=== PATIENT | male | born 1960 | race Caucasian/White ===

== ENCOUNTER 2016-06-22 11:30 | Emergency (ER) | payer SELFPAY ==
[~2016-06-22] VITALS: Ht 180.3 cm; Wt 85.0 kg
[2016-06-22 11:31] VITALS: BP 164/87; PULSE 75; RESP 18; TEMP 97.8; O2SAT 98
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
[2016-06-22 14:04] VITALS: BP 111/70; PULSE 66; RESP 16; TEMP 98.2; O2SAT 97
[2016-06-22] MEDS ORDERED: ACETAMINOPHEN 325 MG TAB PO ONE (14:15)
--- NOTE | 2016-06-22 14:19 | RADRPT ---
EXAM DATE/TIME: 06/22/2016 14:02 [facility] COMPARISON: No previous studies available for comparison. INDICATIONS : Chest pain. MEDICAL HISTORY : Cardiovascular disease. SURGICAL HISTORY : Liver surgery. ENCOUNTER: Initial ACUITY: 2 days PAIN SCORE: 9/10 LOCATION: middle chest FINDINGS: PA and lateral views of the chest. Surgical clips in the right upper quadrant of the abdomen. Bluntin g of the right costophrenic sulcus indicating small pleural effusion versus scarring. The lungs are c lear. Cardiomediastinal silhouette within normal limits. No evidence of pneumothorax. CONCLUSION: 1. Small right pleural effusion versus scarring. No other acute cardiopulmonary disease identified. 2. Post surgical findings right upper quadrant abdomen. Todd Morgan MD on June 22, 2016 at 14:15 Board Certified Radiologist. This report was verified electronically.
[2016-06-22 14:21] LABS: BASOPHIL # 0.1 TH/MM3 (0-0.2); BASOPHIL % 1.4 % (0.0-2.0); EOSINOPHIL # 0.2 TH/MM3 (0-0.4); EOSINOPHIL % 2.3 % (0.0-4.0); HEMATOCRIT 45.8 % (39.0-51.0); HEMO FLAGS DIFF FINAL; LYMPH % 42.9 % (9.0-44.0); LYMPHOCYTE # 3.8 TH/MM3 (1.0-4.8); MEAN CELL VOLUME 86.5 FL (80.0-100.0); MEAN CORPUSCULAR HEMOGLOBIN 29.3 PG (27.0-34.0); MEAN CORPUSCULAR HGB CONC 33.8 % (32.0-36.0); MONO % 8.1 % (0.0-8.0); NEUT % 45.3 % (16.0-70.0); PLATELET COUNT 198 TH/MM3 (150-450); RED CELL DISTRIBUTION WIDTH 15.1 % (11.6-17.2); WHITE BLOOD COUNT 8.9 TH/MM3 (4.0-11.0)
[2016-06-22 14:39] LABS: ALT (GPT) 120 U/L (12-78); ANION GAP 3 MEQ/L (5-15); AST (GOT) 97 U/L (15-37); BICARBONATE 33.4 MEQ/L (21.0-32.0); BLOOD UREA NITROGEN 6 MG/DL (7-18); CHLORIDE 101 MEQ/L (98-107); GLOMERULAR FILTRATION RATE 114 ML/MIN (>89); POTASSIUM 4.4 MEQ/L (3.5-5.1); SODIUM (NA) 137 MEQ/L (136-145)
[2016-06-22 14:42] LABS: ALKALINE PHOSPHATASE 95 U/L (45-117); TOTAL BILIRUBIN ADULT 0.4 MG/DL (0.2-1.0)
== END 2016-06-22 15:38 | disposition home or self-care (01) ==
LOC: NEPD 11:30
DX: S39.012A Strain of muscle, fascia and tendon of lower back, initial encounter (principal); R07.89 Other chest pain; F17.210 Nicotine dependence, cigarettes, uncomplicated; X50.0XXA Overexertion from strenuous movement or load, initial encounter; Y93.89 Activity, other specified; Y92.511 Restaurant or cafe as the place of occurrence of the external cause
CPT/HCPCS: 71020; 80053; 85025; 99283

== ENCOUNTER 2016-07-07 21:47 | Emergency (ER) | payer SELFPAY ==
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
== END 2016-07-07 23:14 | disposition home or self-care (01) ==
LOC: NEPC 21:47
DX: F14.10 Cocaine abuse, uncomplicated (principal); F11.10 Opioid abuse, uncomplicated; F17.210 Nicotine dependence, cigarettes, uncomplicated
CPT/HCPCS: 99284

== ENCOUNTER 2017-03-27 04:15 | Emergency (ER) | payer SELFPAY ==
[~2017-03-27] VITALS: Ht 167.6 cm; Wt 80.0 kg
[~2017-03-27 04:15] MED LIST: GABA300C5 PO; LURA40 PO; SOFO1TAB; TRAZ100T10 PO
[2017-03-27 04:22] VITALS: BP 138/81; PULSE 119; RESP 16; TEMP 98.9; O2SAT 98
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
[2017-03-27] MEDS ORDERED: SODIUM CHLOR 0.9% 1000 ML INJ 1,000 ML IV ONE (04:45)
[2017-03-27] MEDS ORDERED: ONDANSETRON HCL 4 MG/2 ML VIAL IV ONE (04:45)
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
--- NOTE | 2017-03-27 05:17 | RADRPT ---
EXAM DATE/TIME: 03/27/2017 04:57 [facility] COMPARISON: CT BRAIN W/O CONTRAST, January 15, 2017, 21:06. INDICATIONS : Weakness. RADIATION DOSE: 56.35 CTDIvol (mGy) MEDICAL HISTORY : Cardiovascular disease. Hepatitis C. Renal calculi. SURGICAL HISTORY : None. ENCOUNTER: Initial ACUITY: 1 day PAIN SCALE: 0/10 LOCATION: cranial TECHNIQUE: Multiple contiguous axial images were obtained of the head. Using automated exposure control and adj ustment of the mA and/or kV according to patient size, radiation dose was kept as low as reasonably a chievable to obtain optimal diagnostic quality images. DICOM format image data is available electro nically for review and comparison. FINDINGS: CEREBRUM: The ventricles are normal for age. No evidence of midline shift, mass lesion, hemorrhage or acute in farction. No extra-axial fluid collections are seen. POSTERIOR FOSSA: The cerebellum and brainstem are intact. The 4th ventricle is midline. The cerebellopontine angle i s unremarkable. EXTRACRANIAL: There is mucoperiosteal thickening of the visualized paranasal sinuses, especially right maxillary. T his is worsened before. SKULL: The calvaria is intact. No evidence of skull fracture. CONCLUSION: No acute intracranial abnormality. Sinus disease. Trent Rushing MD on March 27, 2017 at 5:14 Board Certified Radiologist. This report was verified electronically.
[2017-03-27 05:20] VITALS: RESP 16; O2SAT 99
[2017-03-27 05:20] LABS: AUTOMATED NEUTROPHIL # 12.1 TH/MM3 (1.8-7.7); BASOPHIL # 0.1 TH/MM3 (0-0.2); BASOPHIL % 0.5 % (0.0-2.0); EOSINOPHIL % 0.3 % (0.0-4.0); HEMATOCRIT 40.2 % (39.0-51.0); HEMOGLOBIN 13.6 GM/DL (13.0-17.0); LYMPHOCYTE # 1.5 TH/MM3 (1.0-4.8); MEAN CELL VOLUME 86.5 FL (80.0-100.0); MEAN CORPUSCULAR HEMOGLOBIN 29.3 PG (27.0-34.0); MEAN CORPUSCULAR HGB CONC 33.9 % (32.0-36.0); MONO % 9.3 % (0.0-8.0); MONOCYTE # 1.4 TH/MM3 (0-0.9); NEUT % 79.9 % (16.0-70.0); PLATELET COUNT 233 TH/MM3 (150-450); RED BLOOD COUNT 4.65 MIL/MM3 (4.50-5.90); RED CELL DISTRIBUTION WIDTH 15.3 % (11.6-17.2); WHITE BLOOD COUNT 15.1 TH/MM3 (4.0-11.0)
[2017-03-27 05:25] LABS: INTERNATIONAL NORMALIZED RATIO 1.1 RATIO; PROTHROMBIN TIME - PATIENT 10.9 SEC (9.8-11.6)
[2017-03-27 05:57] LABS: ALBUMIN 4.2 GM/DL (3.4-5.0); ALKALINE PHOSPHATASE 107 U/L (45-117); ALT (GPT) 28 U/L (12-78); AST (GOT) 28 U/L (15-37); BICARBONATE 28.1 MEQ/L (21.0-32.0); BLOOD UREA NITROGEN 12 MG/DL (7-18); CALCIUM 8.9 MG/DL (8.5-10.1); CHLORIDE 101 MEQ/L (98-107); CREATININE 1.04 MG/DL (0.60-1.30); GLOMERULAR FILTRATION RATE 73 ML/MIN (>89); GLUCOSE,RANDOM 105 MG/DL (74-106); LIPASE 120 U/L (73-393); SODIUM (NA) 140 MEQ/L (136-145); TOTAL BILIRUBIN ADULT 0.3 MG/DL (0.2-1.0); TROPONIN I LESS THAN 0.02 NG/ML (0.02-0.05)
[2017-03-27 05:58] LABS: ACETAMINOPHEN LESS THAN 2.0 MCG/ML (10.0-30.0)
[2017-03-27 06:36] VITALS: BP 150/76; PULSE 102; RESP 16; O2SAT 96
[2017-03-27] MEDS ORDERED: KETOROLAC TROMETHAMINE 30 MG/ML (IVP) VIAL IV PUSH ONE (06:45)
--- NOTE | 2017-03-27 07:03 | RADRPT ---
EXAM DATE/TIME: 03/27/2017 06:49 [facility] COMPARISON: No previous studies available for comparison. INDICATIONS : Shoulder pain. MEDICAL HISTORY : Cardiovascular disease. Hepatitis C. Renal calculi. SURGICAL HISTORY : None. ENCOUNTER: Initial ACUITY: 3 days PAIN SCORE: 9/10 LOCATION: Left upper extremity shoulder. FINDINGS: Multiple view examination of the left shoulder demonstrates no evidence of fracture or dislocation. The glenohumeral and acromioclavicular joints are maintained. There is normal range of motion betwee n internal and external rotation. Bony mineralization is normal. CONCLUSION: No acute disease. Trent Brewster MD on March 27, 2017 at 6:59 Board Certified Radiologist. This report was verified electronically.
--- NOTE | 2017-03-27 07:14 | RADRPT ---
EXAM DATE/TIME: 03/27/2017 06:56 [facility] COMPARISON: No previous studies available for comparison. INDICATIONS : Osteomylitis RADIATION DOSE: 18.19 CTDIvol (mGy) MEDICAL HISTORY : Heroin SURGICAL HISTORY : ENCOUNTER: Initial ACUITY: 1 day PAIN SCALE: 4/10 LOCATION: Left shoulder TECHNIQUE: Volumetric scanning of the shoulder was performed. Using automated exposure control and adjustment o f the mA and/or kV according to patient size, radiation dose was kept as low as reasonably achievable to obtain optimal diagnostic quality images. DICOM format image data is available electronically f or review and comparison. FINDINGS: BONES: No evidence of fracture. Alignment is within normal limits. JOINTS: There is minimal hypertrophic change at the distal clavicle at the acromioclavicular joint. There is a small area of punctate calcification at the posterior aspect of the superior labrum likely related to chondrocalcinosis. SOFT TISSUES: Muscles, tendons, and neurovascular structures are grossly unremarkable. The integrity of the rotato r cuff tendons cannot be reliably evaluated on CT without intra-articular contrast. No evidence of m ass, organized fluid collection, or foreign body. CONCLUSION: 1. No fracture or acute bony injury is seen. 2. Small punctate areas of calcification at the posterior aspect of the superior labrum which may be related to chondrocalcinosis. Trent Brewster MD on March 27, 2017 at 7:06 Board Certified Radiologist. This report was verified electronically.
[2017-03-27 08:00] VITALS: BP 126/72; PULSE 100; RESP 16; O2SAT 96
[2017-03-27 08:43] LABS: BACTERIA, URINE OCC /hpf; BILIRUBIN, URINE NEG (NEG); BLOOD, URINE NEG (NEG); GLUCOSE,URINE NEG (NEG); HYALINE CAST, URINE 63 /lpf (RARE); KETONE, URINE NEG (NEG); MUCUS URINE FEW /lpf (OCC); NITRITE,URINE NEG (NEG); SQUAMOUS EPITHELIAL CELL URINE 1 /hpf (0-5); URINE COLOR YELLOW (YELLW/STRAW); URINE LEUKOCYTE ESTERASE TRACE (NEG)
--- NOTE | 2017-03-27 09:04 | PD ---
Physical Exam Date Seen by Provider: Mar 27, 2017 Time Seen by Provider: 09:01 Narrative 56-year-old male came to the emergency room with history of shoulder pain. Patient is an IV drug abuser. He had also shot heroin before coming in. Patient was seen by the previous ER physician. Please refer to her history and physical for further details. Sign out was to follow-up on his labs and CT scan of the shoulder. All the test results of back and except for slight leukocytosis rest of the results are within normal limit. I'm comfortable discharging him home at this point. Data Data Last Documented VS Orders Orders Electrocardiogram (03/27/17 04:32) Complete Blood Count With Diff (03/27/17 04:32) Comprehensive Metabolic Panel (03/27/17 04:32) Creatine Kinase (Cpk) (03/27/17 04:32) Ckmb (Isoenzyme) Profile (03/27/17 04:32) Troponin I (03/27/17 04:32) B-Type Natriuretic Peptide (03/27/17 04:32) Prothrombin Time / Inr (Pt) (03/27/17 04:32) Act Partial Throm Time (Ptt) (03/27/17 04:32) Lipase (03/27/17 04:32) Urinalysis - C+S If Indicated (03/27/17 04:32) Magnesium (Mg) (03/27/17 04:32) Chest, Single Ap (03/27/17 04:32) Ct Brain W/O Iv Contrast(Rout) (03/27/17 04:32) Iv Access Insert/Monitor (03/27/17 04:32) Ecg Monitoring (03/27/17 04:32) Oximetry (03/27/17 04:32) Type And Screen (03/27/17 04:32) Drug Screen, Random Urine (03/27/17 04:32) Alcohol (Ethanol) (03/27/17 04:32) Salicylates (Aspirin) (03/27/17 04:32) Tylenol (Acetaminophen) (03/27/17 04:32) Sodium Chlor 0.9% 1000 Ml Inj (Ns 1000 M (03/27/17 04:45) Ondansetron Inj (Zofran Inj) (03/27/17 04:45) CKMB (03/27/17 04:45) CKMB% (03/27/17 04:45) Ct Shoulder W/O Contrast (03/27/17 ) Shoulder, Complete (>2vws) (03/27/17 06:37) Ice/Cold Pack (03/27/17 06:37) Westergren Sedimentation Rate (03/27/17 06:38) Ketorolac Inj (Toradol Inj) (03/27/17 06:45) Ed Discharge Order (03/27/17 09:04) AGID (03/27/17 04:45) Labs Laboratory Tests Test 03/27/17 04:45 03/27/17 08:20 03/27/17 08:25 White Blood Count 15.1 TH/MM3 Red Blood Count 4.65 MIL/MM3 Hemoglobin 13.6 GM/DL Hematocrit 40.2 % Mean Corpuscular Volume 86.5 FL Mean Corpuscular Hemoglobin 29.3 PG Mean Corpuscular Hemoglobin Concent 33.9 % Red Cell Distribution Width 15.3 % Platelet Count 233 TH/MM3 Mean Platelet Volume 8.0 FL Neutrophils (%) (Auto) 79.9 % Lymphocytes (%) (Auto) 10.0 % Monocytes (%) (Auto) 9.3 % Eosinophils (%) (Auto) 0.3 % Basophils (%) (Auto) 0.5 % Neutrophils # (Auto) 12.1 TH/MM3 Lymphocytes # (Auto) 1.5 TH/MM3 Monocytes # (Auto) 1.4 TH/MM3 Eosinophils # (Auto) 0.0 TH/MM3 Basophils # (Auto) 0.1 TH/MM3 CBC Comment DIFF FINAL Differential Comment Prothrombin Time 10.9 SEC Prothromb Time International Ratio 1.1 RATIO Activated Partial Thromboplast Time 25.4 SEC Blood Urea Nitrogen 12 MG/DL Creatinine 1.04 MG/DL Random Glucose 105 MG/DL Total Protein 9.0 GM/DL Albumin 4.2 GM/DL Calcium Level 8.9 MG/DL Magnesium Level 2.0 MG/DL Alkaline Phosphatase 107 U/L Aspartate Amino Transf (AST/SGOT) 28 U/L Alanine Aminotransferase (ALT/SGPT) 28 U/L Total Bilirubin 0.3 MG/DL Sodium Level 140 MEQ/L Potassium Level 4.5 MEQ/L Chloride Level 101 MEQ/L Carbon Dioxide Level 28.1 MEQ/L Anion Gap 11 MEQ/L Estimat Glomerular Filtration Rate 73 ML/MIN Total Creatine Kinase 163 U/L Creatine Kinase MB 2.0 NG/ML Troponin I LESS THAN 0.02 NG/ML B-Type Natriuretic Peptide 4 PG/ML Lipase 120 U/L Salicylates Level LESS THAN 1.7 MG/DL Acetaminophen Level LESS THAN 2.0 MCG/ML Ethyl Alcohol Level 122 MG/DL Erythrocyte Sedimentation Rate 8 mm/hr Urine Color YELLOW Urine Turbidity CLEAR Urine pH 5.0 Urine Specific Hiko 1.015 Urine Protein TRACE mg/dL Urine Glucose (UA) NEG mg/dL Urine Ketones NEG mg/dL Urine Occult Blood NEG Urine Nitrite NEG Urine Bilirubin NEG Urine Urobilinogen LESS THAN 2.0 MG/DL Urine Leukocyte Esterase TRACE Urine RBC LESS THAN 1 /hpf Urine WBC 2 /hpf Urine Squamous Epithelial Cells 1 /hpf Urine Bacteria OCC /hpf Urine Hyaline Casts 63 /lpf Urine Mucus FEW /lpf Microscopic Urinalysis Comment CULT NOT INDICATED Urine Opiates Screen POS Urine Barbiturates Screen NEG Urine Amphetamines Screen NEG Urine Benzodiazepines Screen NEG Urine Cocaine Screen POS Urine Cannabinoids Screen NEG MDM Supervised Visit with TERENCE: No Diagnosis Primary Impression: Palpitations Additional Impression: Left shoulder pain Qualified Codes: M25.512 - Pain in left shoulder Referrals: Primary Care Physician Additional Instruction: Should not inject drugs into your IV. It's extremely dangerous. Disposition: 01 DISCHARGE HOME Condition: Stable Jomar Angel MD Mar 27, 2017 09:04
--- NOTE | 2017-03-27 12:48 | EKG ---
Date Performed: 03/27/2017 Time Performed: 04:15:22 PTAGE: 56 years EKG: SINUS TACHYCARDIA WITH SHORT RI INTERVAL ABNORMAL RHYTHM ECG INTERPRETATION BASED ON A DEFA ULT AGE OF 38 YEARS PREVIOUS TRACING : 01/01/2011 11.16 Compared to prior tracing no significant change DOCTOR: Rex Zuñiga Interpretating Date/Time 03/27/2017 12:47:01
== END 2017-03-27 09:10 | disposition home or self-care (01) ==
LOC: NEPE 04:15
DX: R00.2 Palpitations (principal); M25.512 Pain in left shoulder; F11.10 Opioid abuse, uncomplicated; J32.9 Chronic sinusitis, unspecified; R00.0 Tachycardia, unspecified; R11.2 Nausea with vomiting, unspecified; R53.1 Weakness; R42 Dizziness and giddiness; R20.2 Paresthesia of skin
CPT/HCPCS: 70450; 71010; 73030; 73200; 80053; 80307; 81001; 82550; 82552; 83690; 83735; 83880; 84484; 85025; 85610; 85652; 85730; 86077; 86850; 86870; 86900; 86901; 86902; 93005; 96361; 96374; 96375; 99285; J1885; J2405; J7030